=== PATIENT | female | born 1945 | race Caucasian/White ===

== ENCOUNTER 2024-01-08 11:04 | Emergency (ER) | payer MEDICARE, SELFPAY ==
--- NOTE | ~2024-01-08 | XR_ITS ---
XR chest 1V portable 01/08/2024 12:04 Indication: Chest pain. Hypertension. Procedure: AP portable chest Comparison: No prior studies for comparison. Findings: Borderline heart size. No focal air space disease, pulmonary edema, pleural effusion or phillip pected pneumothorax. The lungs are hyperinflated which is consistent with, but not diagnostic of rn chronic bryce obstructive pulmonary disease. Impression: 1: No acute cardiopulmonary disease. Reviewed, dictated and finalized at location B. [employer]IAL MACHINE OPERATOR Impression: 1: No acute cardiopulmonary disease.
[2024-01-08 11:08] VITALS: BP 158/75; PULSE 106; RESP 20; TEMP 36.4; O2SAT 98
[2024-01-08 11:11] VITALS: BP 158/75; PULSE 106; RESP 16; O2SAT 97
--- NOTE | 2024-01-08 11:11 | ECG_ITS ---
Test Date: 2024-01-08 11:23:15 Measurements Intervals [place] Rate: 96 P: 57 UT: 166 QRS: 1 QRSD: 85 T: 35 QT: 340 QTc: 430 Interpretive Statements SINUS RHYTHM BASELINE ARTIFACT- V4 NORMAL ECG No previous ECG available for comparison Electronically Signed On 01-08-2024 11:57:00 [employer] SCI[employer] by Nehemiah Ling D.O.
[2024-01-08 11:15] VITALS: PULSE 98; RESP 19; O2SAT 96
[2024-01-08 11:16] VITALS: BP 143/76; PULSE 100; RESP 20; O2SAT 95
[2024-01-08 11:30] VITALS: PULSE 93; RESP 13; O2SAT 96
[2024-01-08 11:31] VITALS: BP 120/62; PULSE 88; RESP 15; O2SAT 98
--- NOTE | 2024-01-08 12:13 | ED.ARRPALP ---
HPI - Arrhythmia/Palpitations General Chief Complaint: Arrhythmia/Palpitations Stated Complaint: recently rx wellbutrin, c/o htn and palps Time Seen by Provider: 01/08/24 11:32 History of Present Illness HPI narrative: Patient recently went up on her dose of Wellbutrin, and this morning had an episode where she felt palpitations, chest tightness, that is now resolved. Has history of anxiety/panic attacks but this feels different. No symptoms currently Review of Systems Review of Systems: All systems reviewed & are unremarkable except as noted in HPI and below Exam Narrative: EXAMINATION OF ORGAN SYSTEMS/BODY AREAS: Constitutional: Vital signs per nursing GENERAL:[No acute distress, non-toxic appearing.] HEAD: Normal with no signs of head trauma. EYES: EOMI, conjunctiva normal ENT: Hearing grossly intact LUNGS: Nonlabored breathing. HEART: [Regular rate and rhythm] ABD: [Soft], [nontender to palpation] EXT: Normal range of motion SKIN: [No rashes or lesions.] NEURO: [Alert and oriented x 3. No gross focal sensory or strength deficits.] PSYCH: Normal affect Course Vital Signs Vital signs: Vital Signs Temperature 97.6 F 01/08/24 11:08 Pulse Rate 106 H 01/08/24 11:08 Respiratory Rate 20 01/08/24 11:08 Blood Pressure 158/75 H 01/08/24 11:08 Pulse Oximetry 98 01/08/24 11:08 Oxygen Delivery Room Air 01/08/24 11:08 Temperature 97.6 F 01/08/24 11:08 Pulse Rate 88 01/08/24 11:31 Respiratory Rate 15 01/08/24 11:31 Blood Pressure 120/62 01/08/24 11:31 Pulse Oximetry 98 01/08/24 11:31 Oxygen Delivery Room Air 01/08/24 11:08 MDM - Arrhythmia/Palpitations MDM Narrative Medical decision making narrative: Patient with history of anxiety/panic attacks presenting here with symptoms consistent with panic attack, now asymptomatic. On exam patient is very well-appearing in no distress. I will obtain EKG and chest xray to rule out arrhythmia/ischemia, pneumothorax, or other cause of chest discomfort/shortness of breath. Labs will be obtained. Chest x-ray on my independent interpretation does not show any acute abnormality, no pneumothorax or consolidation. EKG on my independent interpretation shows sinus rhythm at rate 96, normal MA, QRS, QTC, normal axis, no ST elevations depressions or signs of acute arrhythmia or ischemia Labs including troponin within acceptable limits. Her HEART score is 3. I do feel patient is stable for discharge home at this time with followup to their doctor, and return here if symptoms return or worsen. Agreeable to outpatient management. Lab Data 01/08/24 12:08 01/08/24 12:08 Labs: Lab Results 01/08/24 Range/Units 12:08 WBC 7.7 (4.5-10.0) K/mm3 RBC 4.46 (4.2-5.4) M/mm3 Hgb 13.7 (12.0-15.0) g/dL Hct 40.7 (37.0-47.0) % MCV 91.3 (80-100) fl MCH 30.7 (26-34) pg MCHC 33.7 (32-36) g/dl RDW 13.2 (11.5-14.5) % Plt Count 332 (150-375) k/mm3 MPV 9.2 (7.4-10.4) fl Immature Gran % (Auto) 0.3 (0-0.5) % Neut % (Auto) 68.2 (45.5-73.1) % Lymph % (Auto) 21.3 (18.3-44.2) % [place] % (Auto) 6.2 (2.6-8.5) % Eos % (Auto) 3.5 (0-4.4) % Baso % (Auto) 0.5 (0.2-1.2) % Lymph # (Auto) 1.65 (0.9-3.2) K/mm3 [place] # (Auto) 0.5 (0.1-0.6) K/mm3 Eos # (Auto) 0.3 (0-0.3) K/mm3 Baso # (Auto) 0.0 (0.0-0.1) K/mm3 Abs Immat Gran (auto) 0.02 (0.00-0.031) K/mm3 Absolute Neuts (auto) 5.3 (1.3-6.7) K/mm3 Absolute Nucleated RBC 0.000 (0.0-0.012) K/mm3 Nucleated RBC % 0.0 (0.0-0.2) % Sodium 138 (137-145) mmol/L Potassium 3.8 (3.4-5.0) mmol/L Chloride 103 (98-107) mmol/L Carbon Dioxide 25 (22-30) mmol/L Anion Gap 10 (4-12) mmol/L BUN 14 (7-17) mg/dL Creatinine 0.70 (0.7-1.0) mg/dL Estim Creat Clear Calc 66 ml/min Estimated GFR > 60 (59 - ) Glucose 132 H (65-110) mg/dL Calcium 9.5 (8.4-10.2) mg/dL Magnesium 2.1 (1.6-2.3) mg/dL Troponin I < 0.012 (0.000-0.034) ng/mL Discharge Plan Discharge Clinical Impression: Palpitations Patient Disposition: Home, Self-Care Condition: Stable Instructions: Heart Palpitations (ED) Additional Instructions: Please follow up with your doctor; you can always return for any further issues. Follow-up/Referrals: UNKNOWN,DOCTOR [Primary Care Provider] -
[2024-01-08 12:16] LABS: Basophils Percent Auto 0.5 % (0.2-1.2); Eosinophils Absolute Auto 0.3 K/mm3 (0-0.3); Eosinophils Percent Auto 3.5 % (0-4.4); Hematocrit 40.7 % (37.0-47.0); Hemoglobin 13.7 g/dL (12.0-15.0); Immature Granulocyte Absolute 0.02 K/mm3 (0.00-0.031); Immature Granulocyte Percent A 0.3 % (0-0.5); Lymphocytes Absolute Auto 1.65 K/mm3 (0.9-3.2); Lymphocytes Percent Auto 21.3 % (18.3-44.2); Mean Corpuscular HGB Conc 33.7 g/dl (32-36); Mean Corpuscular Hemoglobin 30.7 pg (26-34); Mean Corpuscular Volume 91.3 fl (80-100); Mean Platelet Volume 9.2 fl (7.4-10.4); Monocytes Absolute Auto 0.5 K/mm3 (0.1-0.6); Monocytes Percent Auto 6.2 % (2.6-8.5); Neutrophils Absolute Auto 5.3 K/mm3 (1.3-6.7); Neutrophils Percent Auto 68.2 % (45.5-73.1); Platelet Count Result 332 k/mm3 (150-375); Red Blood Count 4.46 M/mm3 (4.2-5.4); Red Cell Distribution Width 13.2 % (11.5-14.5); White Blood Count 7.7 K/mm3 (4.5-10.0)
[2024-01-08 12:29] LABS: Anion Gap 10 mmol/L (4-12); Blood Urea Nitrogen 14 mg/dL (7-17); Calcium 9.5 mg/dL (8.4-10.2); Carbon Dioxide 25 mmol/L (22-30); Chloride 103 mmol/L (98-107); Estimated CRCL calculation 66 ml/min; Estimated Glomerular Filt Rate > 60; Glucose 132 mg/dL (65-110); Magnesium 2.1 mg/dL (1.6-2.3); Potassium 3.8 mmol/L (3.4-5.0); Sodium 138 mmol/L (137-145)
[2024-01-08 12:40] LABS: Troponin I < 0.012 ng/mL (0.000-0.034)
== END 2024-01-08 13:30 | disposition home or self-care (01) ==
PROVIDERS: Emergency Provider Emergency Medicine
DX: R00.2 Palpitations (principal); F41.0 Panic disorder [episodic paroxysmal anxiety]; Z79.899 Other long term (current) drug therapy
CPT/HCPCS: 36415; 71045; 80048; 83735; 84484; 85025; 93005; 99284